=== PATIENT | male | born 2000 | race Caucasian/White ===

== ENCOUNTER → 2022-08-08 11:07 | Outpatient (CLI) | payer OTHER, SELFPAY ==
--- NOTE | ~2022-08-08 | CT_ITS ---
Noncontrast CT scan of the left foot CLINICAL HISTORY: Pain TECHNIQUE: Axial noncontrast imaging of the left foot was performed. Sagittal and coronal reformatted images were reconstructed. Dose reduction technique was used on this scan by utilizing automated exp osure control and iterative reconstruction technique. FINDINGS: No fracture or dislocation seen. Osseous alignment is anatomic. Joint spaces are preserved. No joint effusion identified. Visualized musculature unremarkable. No gross soft tissue abnormality identified. IMPRESSION: No significant abnormality identified. Reviewed, dictated and finalized at location . [facility]
== END ==
PROVIDERS: PCP Family Medicine; Visit Provider Family Medicine Sports Medicine
DX: M25.572 Pain in left ankle and joints of left foot (principal); S92.255D Nondisplaced fracture of navicular [scaphoid] of left foot, subsequent encounter for fracture with routine healing; T14.90XD Injury, unspecified, subsequent encounter
CPT/HCPCS: 73700

== ENCOUNTER → 2023-01-02 07:19 | Outpatient (CLI) | payer OTHER, SELFPAY ==
--- NOTE | ~2023-01-02 | MR_ITS ---
EXAMINATION: MR knee RT wo con DATE: 01/02/2023 08:09 INDICATION: Right lateral knee pain. TECHNIQUE: Magnetic resonance imaging (MRI) of the right knee was performed without intravenous contr ast. Sequences included axial PD-weighted FS FSE, coronal PD-weighted FSE and PD-weighted FS FSE, sag ittal PD-weighted FSE, and sagittal T2-weighted FS FSE. COMPARISON: None. FINDINGS: Medial compartment: Medial meniscus is normal. There is shallow partial-thickness cartilage loss of femoral condyle invol ving the posterior articular surface. Tibial cartilage is normal. Lateral compartment: Lateral meniscus is normal. Lateral compartment cartilage is normal. Patellofemoral compartment: Patellar cartilage is normal. Trochlear cartilage is normal. Ligaments and tendons: Anterior cruciate ligament is intact. There is a partial tear of posterior cruciate ligament characte rized by increased signal intensity proximally. The medial collateral ligament is intact. There are c hanges of prior sprain of fibular collateral ligament characterized increased signal intensity proxim ally. There is mild patellar tendinopathy. Fluid: There is a small knee joint effusion. There is a small ruptured King's cyst. There is mild prepatell ar and superficial infrapatellar bursitis. There is mild deep infrapatellar bursitis. Osseous/other: There is a subchondral trabecular fracture of medial femoral condyle involving the anterior articular surface with low signal fracture lines and surrounding edema-like marrow signal intensity. Similarly , there is a trabecular fracture involving anterior aspect of lateral tibial condyle. There is edema- like marrow signal intensity involving the medial tibial condyle, lateral femoral condyle, and filtration plant mechanic ior aspect of lateral tibial condyle, consistent with contusions. IMPRESSION: 1. Partial tear of posterior cruciate ligament. 2. Trabecular fractures involving anterior aspect of medial femoral condyle and anterior aspect of la teral tibial condyle. Multifocal bone contusions. 3. Mild chondrosis of medial femoral condyle. 4. Small knee joint effusion. 5. Small ruptured King's cyst. Reviewed, dictated and finalized at location D. IMPRESSION: 1. Partial tear of posterior cruciate ligament. 2. Trabecular fractures involving anterior aspect of medial femoral condyle and anterior aspect of lateral tibial condyle. Multifocal bone contusions. 3. Mild chondrosis of medial femoral condyle. 4. Small knee joint effusion. 5. Small ruptured King's cyst.
== END ==
PROVIDERS: PCP Family Medicine; Visit Provider Physician Assistant
DX: S72.431A Displaced fracture of medial condyle of right femur, initial encounter for closed fracture (principal); S83.521A Sprain of posterior cruciate ligament of right knee, initial encounter; X58.XXXA Exposure to other specified factors, initial encounter; M25.461 Effusion, right knee; M71.21 Synovial cyst of popliteal space [Baker], right knee
CPT/HCPCS: 73721